=== PATIENT | female | born 1960 | race Caucasian/White ===

== ENCOUNTER 2017-05-27 05:44 | Inpatient (IN) ==
[2017-05-24 11:42] LABS: Basophils % 0.2 % (0.0-0.8); Eosinophils # 0.1 10*3/uL (0.0-0.87); Eosinophils % 1.4 % (0.00-10.9); Hematocrit 44.5 VOL% (35.7-47.0); Hemoglobin 15.8 GM/DL (12.0-16.0); Immature Granulocytes % 0.5 %; Immature Granulocytes Absolute 0.03 #; Lymphocytes # 1.3 10*3/uL (1.4-4.0); Mean Corpuscular HGB Conc 35.5 GM/DL (32-36); Mean Corpuscular Hemoglobin 35 PG (27-34); Mean Corpuscular Volume 98.2 FL (87-102); Mean Platelet Volume 9.6 FL (9.6-12.0); Monocytes # 0.3 10*3/uL (0.11-0.8); Monocytes % 5.4 % (1.7-12.7); Neutrophils # 4.5 10*3/uL (1.4-7.4); Neutrophils % 71.5 % (38.7-73.9); Platelet Count 259 T/CUMM (130-400); Red Blood Count 4.53 MC/CUMM (3.8-5.5); Red Cell Distribution Width 12.3 % (9.3-17.3); White Blood Count 6.3 T/CUMM (4-12)
[2017-05-24 11:51] LABS: PT Patient Result 10.8 SECS; Partial Thromboplastin Time 24.1 SECS (0-40)
[2017-05-24 11:59] LABS: Apearance,Urine Slightly Hazy (Clear); Bacteria,Urine Occasional /HPF (Few); Bilirubin,Urine Negative (Negative); Blood, Urine Negative (Negative); Glucose,Urine (UA) Negative (Negative); Granular Casts,Urine 1 /LPF (0-1); Hyaline Casts,Urine 1 /LPF (0-3); Ketones,Urine Negative (Negative); Mucus,Urine Occasional /LPF (Occasional); Nitrite,Urine Negative (Negative); Protein,Urine Negative; RBC,Urine 1 /HPF (0-4); Squamous Epithelial Cell,Urine Occasional /HPF (0-10); Urine Color Yellow (Yellow); Urine Specific Gravity 1.016 (1.001-1.035); WBC,Urine 10 /HPF (0-6)
[2017-05-24 12:17] LABS: % Iron Saturation 77.7 % (18-50); Albumin 4.3 G/DL (3.4-5.0); Bilirubin,Total 0.8 MG/DL (0.2-1.0); Calcium 9.2 MG/DL (8.5-10.1); Osmolality,Calculated 275.5 MOS/KG (273-304); Potassium 4.4 MMOL/L (3.5-5.1); Risk Ratio 4.42; Thyroid Stimulating Hormone 3.96 uIU/ml (0.358-3.74); Total Protein 7.5 G/DL (6.4-8.3); VLDL CHOLESTEROL 44.4 MG/DL
[2017-05-24 12:35] LABS: 25 Hydroxy Vitamin D Total 35.6 NG/ML; Folate 7.6 NG/ML (5.4-24.0)
[2017-05-27] MEDS ORDERED: cefOXitin 2,000 MG in SYRINGE 1 EACH IV ONE (06:00)
[2017-05-27] MEDS ORDERED: SCOPOLAMINE 1.5 MG PATCH TRANSDERM ONE ×2 (06:00→06:02)
[2017-05-27] MEDS ORDERED: HYOSCYAMINE 0.125 MG TABLET SL ONE (06:00)
[2017-05-27] MEDS ORDERED: PANTOPRAZOLE 40 MG VIAL IV ONE ×2 (06:00→06:02)
[2017-05-27] MEDS ORDERED: ACETAMINOPHEN INJ 1,000 MG in PREMIX 1 EACH IV ONE (06:00)
[2017-05-27] MEDS ORDERED: HEPARIN 5,000 UNIT/1 ML VIAL SUBCUT ONE (06:00)
[2017-05-27] MEDS ORDERED: HYOSCYAMINE 0.125 MG TABLET ONE (06:02)
[2017-05-27] MEDS ORDERED: HEPARIN 5,000 UNIT/1 ML VIAL ONE (06:02)
[2017-05-27] MEDS ORDERED: ACETAMINOPHEN 1,000 MG/100 ML VIAL IV ONE (06:02)
[2017-05-27] MEDS ORDERED: TISSUE ADHESIVE 1 EACH APPLICATOR TOP ONE (06:24)
[2017-05-27] MEDS ORDERED: BUPIVACAINE 0.25% 50 ML VIAL ONE (06:24)
[2017-05-27] MEDS ORDERED: BUPIVACAINE LIPOSOMAL 20 ML/266 MG VIAL ONE (06:24)
[2017-05-27] MEDS ORDERED: cefOXitin 3,000 MG in SYRINGE 1 EACH IV STA (06:26)
[2017-05-27] MEDS: LACTATED RINGERS 1,000 ML IV SCH ×4 (06:50→20:47)
[2017-05-27] MEDS ORDERED: PROPOFOL 200 MG/20 ML VIAL IV ONE (10:06)
[2017-05-27] MEDS ORDERED: MIDAZOLAM 2 MG/2 ML VIAL ONE (10:07)
[2017-05-27] MEDS ORDERED: DESFLURANE 1 UNIT/15 MINUTE INH ONE (10:07)
[2017-05-27] MEDS ORDERED: PROMETHAZINE 25 MG/1 ML VIAL ONE (10:07)
[2017-05-27] MEDS ORDERED: fentaNYL 100 MCG/2 ML VIAL ONE (10:07)
[2017-05-27] MEDS ORDERED: DEXAMETHASONE 10 MG/1 ML VIAL ONE (10:08)
[2017-05-27] MEDS ORDERED: LACTATED RINGERS 1,000 ML IV ONE (10:08)
[2017-05-27] MEDS ORDERED: ROCURONIUM 100 MG/10 ML VIAL IV ONE (10:08)
[2017-05-27] MEDS ORDERED: NEOSTIGMINE 10 MG/10 ML VIAL ONE (10:08)
[2017-05-27] MEDS ORDERED: ONDANSETRON 4 MG/2 ML VIAL ONE ×2 (10:08→10:09)
[2017-05-27] MEDS ORDERED: GLYCOPYRROLATE 0.4 MG/2 ML VIAL ONE ×2 (10:08)
[2017-05-27] MEDS ORDERED: hydrALAZINE 20 MG/1 ML VIAL IV PRN (11:53)
[2017-05-27] MEDS ORDERED: ONDANSETRON 4 MG/2 ML VIAL IV PRN (11:53)
[2017-05-27] MEDS ORDERED: MORPHINE 10 MG/1 ML VIAL IV PRN (11:53)
[2017-05-27] MEDS: ceFAZolin 2,000 MG in PREMIX 1 EACH IV SCH ×2 (16:49→23:17)
[2017-05-27] MEDS: HYDROcod/ACETAMIN 7.5-325 MG/15 ML UDCUP PO PRN ×2 (16:51→21:24)
[2017-05-27] MEDS: GABAPENTIN 300 MG CAPSULE PO SCH (20:46)
[2017-05-28] MEDS: LACTATED RINGERS 1,000 ML IV SCH ×3 (03:59→18:27)
[2017-05-28] MEDS ORDERED: ACETAMINOPHEN 650 MG SUPP RECTAL PRN (05:02)
[2017-05-28] MEDS ORDERED: CETIRIZINE 10 MG TABLET PO PRN (05:07)
[2017-05-28] MEDS ORDERED: LEVOTHYROXINE 175 MCG TABLET PO SCH (06:30)
[2017-05-28 07:21] LABS: Basophils % 0.1 % (0.0-0.8); Hematocrit 39.6 VOL% (35.7-47.0); Hemoglobin 14.3 GM/DL (12.0-16.0); Immature Granulocytes % 0.7 %; Immature Granulocytes Absolute 0.07 #; Lymphocytes # 0.9 10*3/uL (1.4-4.0); Lymphocytes % 9.2 % (21.3-54.2); Mean Corpuscular HGB Conc 36.1 GM/DL (32-36); Mean Corpuscular Hemoglobin 35 PG (27-34); Mean Corpuscular Volume 97.1 FL (87-102); Mean Platelet Volume 10.6 FL (9.6-12.0); Monocytes # 0.7 10*3/uL (0.11-0.8); Monocytes % 7.1 % (1.7-12.7); Neutrophils # 8.5 10*3/uL (1.4-7.4); Neutrophils % 82.9 % (38.7-73.9); Platelet Count 291 T/CUMM (130-400); Red Blood Count 4.08 MC/CUMM (3.8-5.5); Red Cell Distribution Width 12.3 % (9.3-17.3); White Blood Count 10.3 T/CUMM (4-12)
[2017-05-28 08:50] LABS: Calcium 8.9 MG/DL (8.5-10.1); Osmolality,Calculated 275.5 MOS/KG (273-304); Potassium 3.7 MMOL/L (3.5-5.1)
[2017-05-28] MEDS ORDERED: PANTOPRAZOLE 40 MG VIAL IV SCH (09:00)
[2017-05-28] MEDS: GABAPENTIN 300 MG CAPSULE PO SCH (09:40)
[2017-05-28] MEDS ORDERED: SIMETHICONE CHEW 80 MG TABLET PO SCH (10:58)
[2017-05-28 11:51] VITALS: BP 154/65
[2017-05-29] MEDS ORDERED: ENOXAPARIN 40 MG/0.4 ML SYRINGE SUBCUT SCH (09:00)
== END 2017-05-28 14:57 | disposition home or self-care (01) | DRG 621 ==
LOC: N.SDSINP 05:44 → N.3E 10:46
PROVIDERS: ADMIT Surgery; ATTEND Surgery